=== PATIENT | female | born 1985 | race Caucasian/White ===

== ENCOUNTER 2020-11-27 08:49 | Emergency (ER) | payer OTHER, MEDICAID, SELFPAY ==
[2020-11-27] VITALS (8 sets, daily range): BP systolic 130–152; BP diastolic 62–68; PULSE 72–85; RESP 14–18; TEMP 36.8; O2SAT 97–99; BMI 33.0
--- NOTE | 2020-11-27 09:15 | DI.RAD.S_ITS ---
PROCEDURE: XR CHEST 1V INDICATIONS: chest pain TECHNIQUE: One view of the chest was acquired. COMPARISON: [facility], CR, XR CHEST 2 VIEWS, 11/15/2018, 7:34. [facility], CR, XR CHEST 1 VIEW, 06/25/2020, 8:04. FINDINGS: Surgical changes and devices: None. Lungs and pleura: Lungs are clear. No pleural effusions or pneumothorax. Mediastinum: Mediastinal contours appear normal. Heart size is normal. Bones and chest wall: No suspicious bony lesions. Overlying soft tissues appear unremarkable. IMPRESSION: Portable chest within normal limits. Dictated by: Vern Pinzon M.D. on 11/27/2020 at 8:30 Approved by: Vern Pinzon M.D. on 11/27/2020 at 8:32
[2020-11-27 09:21] LABS: Add Manual Diff / Slide Review NO; Basophils Absolute Auto 0 /uL (0-100); Basophils Percent Auto 0.6 % (0-2); Eosinophils Absolute Auto 100 /uL (0-450); Eosinophils Percent Auto 0.8 % (2-4); Hematocrit 41.2 % (36-46); Hemoglobin 14.1 g/dL (12.0-16.0); Lymphocytes Absolute Auto 2400 /uL (1100-4500); Lymphocytes Percent Auto 32.4 % (25-40); Mean Corpuscular HGB Conc 34.2 % (30-36); Mean Corpuscular Hemoglobin 29.8 PG (26-34); Mean Corpuscular Volume 87.2 fL (80-100); Monocytes Absolute Auto 600 /uL (0-900); Monocytes Percent Auto 7.5 % (3-14); Neutrophils Absolute Auto 4300 /uL (1500-7000); Neutrophils Percent Auto 58.7 % (50-75); Platelet Count 241 X10^3/uL (150-400); Red Blood Cell Count 4.73 X10^6/uL (4.0-5.2); Red Cell Distribution Width 12.9 % (11.6-14.8); White Blood Cell Count 7.4 X10^3/uL (4.5-11.0)
[2020-11-27 09:29] LABS: Alanine Aminotransferase 19 IU/L (<35); Albumin 4.6 g/dL (3.5-5.0); Albumin Globulin Ratio 1.5 (1.0-2.8); Alkaline Phosphatase 60 U/L (38-126); Aspartate Aminotransferase 28 IU/L (14-36); BUN Creatinine Ratio 21.2 (6-22); Blood Urea Nitrogen 11 mg/dL (7-17); Calcium 9.3 mg/dL (8.4-10.2); Carbon Dioxide 26 mmol/L (22-32); Chloride 102 mmol/L (98-107); Creatine Kinase 94 U/L (30-135); Estimated Glomerular Filt Rate > 60.0 mL/min (>60); Glucose 90 mg/dL (70-100); Lipase 66 U/L (23-300); Magnesium 1.8 mg/dL (1.6-2.3); Potassium 4.3 mmol/L (3.4-5.1); Sodium 136 mmol/L (137-145); Total Protein 7.6 g/dL (6.3-8.2)
[2020-11-27 09:30] LABS: HEMOLYSIS 52 (0-50)
[2020-11-27 09:35] LABS: Prothrombin Time 11.4 SECONDS (10.1-12.7)
[2020-11-27 09:38] LABS: PTT Partial Thromboplastin Tim 31 SECONDS (26.4-36.2)
[2020-11-27 09:40] LABS: Troponin I < 0.012 ng/mL (0.01-0.034)
--- NOTE | 2020-11-27 10:10 | ED_ITS ---
HPI - Chest Pain General Chief Complaint: Chest Pain Stated Complaint: sharp pain in head,dizzy,chest pain,fainty Time Seen by Provider: 11/27/20 09:19 Source: patient Mode of arrival: Ambulatory Limitations: no limitations History of Present Illness HPI narrative: 34-year-old woman comes in complaining of at stabbing pain behind her right eye, eyelid twitching and a zinging pain going all the way from her head down her right arm. She states that this is the worst episode that she has had but she notes over the last 6 weeks that she has been having similar findings. She reports no vision changes and no tinnitus. She does not note any motor issues or weakness. She notes multiple episodes of zoning neuropathic type pain in both upper and lower extremities. She does have a history of migraine and has been on Topamax in the past but it was not effective for her. She has used Botox as well as injectable Toradol and tripped hands and none have been very effective. She states when she does get headaches they typically are one-sided but today she is having bilateral stabbing temporal pain. She complains of multiple arthralgias and in the past to the hospital if fibromyalgia as a diagnosis was discussed. 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 She does note that her biologic mother does have multiple sclerosis but has no additional details are as they do not talk to each other. The event today was a combination of all of the complaints symptoms that have been increasing over the last 6 weeks and she is significantly concerned. Related Data Previous Rx's Medication Instructions Recorded amitriptyline 25 mg PO BEDTIME #30 tab 11/27/20 Allergies Allergy/AdvReac Type Severity Reaction Status Date / Time codeine [From Robitussin A-C] AdvReac Dizziness Verified 11/27/20 09:25 [email or web address] AdvReac Dizziness Verified 11/27/20 09:25 [From Robitussin A-C] Review of Systems Review of Systems Narrative: Pertinent positive and negative findings as per HPI Remainder of review of systems is otherwise unremarkable for Constitutional: Fevers, chills, weakness ENT: No sore throat, neck pain, ear pain CV: Chest pain, palpitations, dyspnea on exertion Respiratory: Cough, wheeze, dyspnea GI: Nausea, vomiting, diarrhea, change in bowel habits, black or bloody stools : Dysuria, hematuria, flank pain MS: Muscle weakness, numbness, joint swelling or warmth Skin: Rashes, nonhealing lesions Patient History Medical History Migraine Social History Smoking Status: Never smoker Smoking Status: Never smoker alcohol intake frequency: other Substance Use Type: does not use Exam Narrative Exam Narrative: General: Healthy appearing, in no acute distress. Able to give a complete and coherent history. Well-nourished well-developed HEENT: Moist mucous membranes, normal sclera with reactive pupils, no blepharospasm is observed at this time Neck: No JVD, supple Respiratory: Lungs are clear to auscultation, no wheezing no rales no rhonchi. Full and symmetrical air movement Cardiac: Regular rate and rhythm no murmurs no bruits Abdomen: Soft, nontender, good bowel tones, no flank pain Skin: Warm and dry, no rashes Neurologic: Grossly neurologically intact with no obvious asymmetries or abnormalities, reflexes are 3+ and symmetrical in upper and lower extremities Extremities: No trauma, well perfused Psych: Cooperative, appropriate insight and affect Initial Vital Signs Initial Vital Signs: Vital Signs Temperature 98.3 F 11/27/20 08:50 Pulse Rate 85 11/27/20 08:50 Respiratory Rate 16 11/27/20 08:50 Blood Pressure 152/67 H 11/27/20 08:50 Pulse Oximetry 99 11/27/20 08:50 Course Orders Ordered: ED Orders 11/27/20 09:10 Complete Blood Count AUTO DIFF Stat Comprehensive Metabolic Panel Stat Lipase Stat Magnesium Stat Partial Thromboplastin Time Stat Prothrombin Time INR Stat Troponin & CK Cardiac Panel Stat 11/27/20 09:15 XR chest 1V Stat EKG-12 Lead Stat 11/27/20 10:15 MR head/brain wo/w con Stat Discontinued Medications Lorazepam (Lorazepam 2 Mg/Ml Inj) 1 mg IV NOW ONE Stop: 11/27/20 10:18 Last Admin: 11/27/20 10:24 Dose: 1 mg Documented by: GAYE Vital Signs Vital signs: Vital Signs - 8 hr 11/27/20 08:50 11/27/20 09:11 11/27/20 09:12 Temperature 98.3 F Pulse Rate 85 81 78 Respiratory Rate 16 Blood Pressure 152/67 H 136/62 Pulse Oximetry 99 98 97 11/27/20 09:30 11/27/20 09:31 11/27/20 10:09 Temperature Pulse Rate 79 78 83 Respiratory Rate 18 16 Blood Pressure 139/68 Pulse Oximetry 98 99 99 11/27/20 11:36 Temperature Pulse Rate 72 Respiratory Rate 14 Blood Pressure 130/62 Pulse Oximetry 99 MDM - Chest Pain Medical Records Data Attestation: I reviewed the patient's medical records. Lab Data Attestation: I reviewed the patient's lab results. Result diagrams: 11/27/20 09:10 11/27/20 09:10 Labs: Lab Results 11/27/20 11/27/20 11/27/20 Range/Units 09:10 09:10 09:10 WBC 7.4 (4.5-11.0) X10^3/uL RBC 4.73 (4.0-5.2) X10^6/uL Hgb 14.1 (12.0-16.0) g/dL Hct 41.2 (36-46) % MCV 87.2 (80-100) fL MCH 29.8 (26-34) PG MCHC 34.2 (30-36) % RDW 12.9 (11.6-14.8) % Plt Count 241 (150-400) X10^3/uL Neut % (Auto) 58.7 (50-75) % Lymph % (Auto) 32.4 (25-40) % [place] % (Auto) 7.5 (3-14) % Eos % (Auto) 0.8 L (2-4) % Baso % (Auto) 0.6 (0-2) % Neut # (Auto) 4300 (3757-1867) /uL Lymph # (Auto) 2400 (3907-6286) /uL [place] # (Auto) 600 (0-900) /uL Eos # (Auto) 100 (0-450) /uL Baso # (Auto) 0 (0-100) /uL PT 11.4 (10.1-12.7) SECONDS INR 1.0 (0.9-1.3) APTT 31 (26.4-36.2) SECONDS Sodium 136 L (137-145) mmol/L Potassium 4.3 (3.4-5.1) mmol/L Chloride 102 (98-107) mmol/L Carbon Dioxide 26 (22-32) mmol/L BUN 11 (7-17) mg/dL Creatinine 0.52 (0.52-1.04) mg/dL Estimated GFR > 60.0 (>60) mL/min BUN/Creatinine Ratio 21.2 (6-22) Glucose 90 (70-100) mg/dL Calcium 9.3 (8.4-10.2) mg/dL Magnesium 1.8 (1.6-2.3) mg/dL Total Bilirubin 1.0 (0.2-1.3) mg/dL AST 28 (14-36) IU/L ALT 19 (<35) IU/L Alkaline Phosphatase 60 (38-126) U/L Total Creatine Kinase 94 (30-135) U/L CK-MB (CK-2) TNP CK-MB (CK-2) Rel Index TNP Troponin I < 0.012 (0.01-0.034) ng/mL Total Protein 7.6 (6.3-8.2) g/dL Albumin 4.6 (3.5-5.0) g/dL Globulin 3.0 (1.7-4.1) g/dL Albumin/Globulin Ratio 1.5 (1.0-2.8) Lipase 66 (23-300) U/L Point of Care Testing Test Results Negative Urine Dip Bedside Urine Glucose Negative Bedside Urine Bilirubin - Negative Bedside Urine Ketone - Negative Urine Specific [place] 1.015 Bedside Urine Occult Blood - Negative Bedside Urine pH 6.0 Bedside Urine Protein - Negative Bedside Urine Urobilinogen - Negative Bedside Urine Nitrite - Negative Bedside Urine Leukocytes - Negative Esterase Imaging Data MR brain with and without: Radiologist's Impression: FINDINGS: Image quality: Excellent. CSF Spaces: Basal cisterns are patent. No extra-axial fluid collections. Ventricles are normal in size and shape. Brain: No brain parenchymal signal abnormality. The major intracranial vascular flow-related signal voids are maintained. Midline structures are normal in configuration. Orbital structures unremarkable. Skull and face: Calvarial marrow is normal in signal. Orbits appear normal. Sinuses: Sinuses and mastoids appear clear. IMPRESSION: Normal study. Dictated by: Angel Galindo M.D. on 11/27/2020 at 11:05 ECG Data Attestation: I personally reviewed and interpreted this ECG as follows: Interpretation: Sinus rhythm at a rate of 77 Normal intervals, normal axis No acute ischemic changes MDM Narrative Medical decision making narrative: 34-year-old woman with multiple complaints progressively worsening. Multiple neuropathic pain intermittent headaches intermittent blepharospasm. Possibility of multiple sclerosis given her mother's diagnosis is entertained. She has not had previous imaging. Her miller est concern is that she is having a stroke which, given her clinical exam presentation is far less likely. Labs are reassuring. Will see if brain MRI imaging can be facilitated today. MRI comes back very reassuring. Findings are shared with patient. In terms of her recurrent ?mini? neuropathic episodes and the blepharitis with eye pain I am wondering if this all may be migraine variant. I am going to suggest that she try adding magnesium as this can be helpful with both muscle spasm and reducing severity in incidence of migraine. I am also going to suggest that she try 25 mg of amitriptyline at night as a migraine prophylaxis. Went over alternatives benefits risks of amitriptyline with her. She is more than willing to try this and keep track of symptoms and follow-up with her [facility] physician in about month. She is safe for home discharge Discharge Plan Departure Patient Disposition: Home Clinical Impression: Migraine Qualifiers: Migraine type: ophthalmoplegic Intractability: not intractable Qualified Code(s): G43.B0 - Ophthalmoplegic migraine, not intractable Instructions: DI for Migraine Activity Restrictions/Additional Instructions: Thank you for coming in today I do not have a complete explanation for the is singing neuropathic pain that your having all-over your body, the blepharospasm or the pain behind her eye. I do know this does not look like MS based on your normal MRI. You do not have a tumor or mass that is causing any abnormalities within your brain. Your blood work was entirely reassuring. Because the pains are fleeting but recurrent I am going to suggest that we step back and take a larger overall approach to seeing if we can make a difference in your symptoms. Please add a daily magnesium supplement to your current medications. Magnesium can help with muscle spasm and also decrease intensity and severity of migraine. I am also going to suggest that you add 25 mg of amitriptyline at night. This may reduce the severity intensity of the symptoms that you are noticing. It will take at least a month of trying this to see if it truly will influence your symptoms. Please take it 2-3 hours before you plan to fall asleep. It frequ ently will give you a dry mouth and definitely helps with sleep. If you take it right bedtime and often leaves you groggy for a few hours in the morning. You need to schedule an appointment with your primary care physician in about a month to review all of your symptoms and see if the amitriptyline has been a good addition for you. I wish you the best Prescriptions: New amitriptyline 25 mg tablet 25 mg PO BEDTIME Qty: 30 RF: 1
--- NOTE | 2020-11-27 10:15 | DI.MRI.S_ITS ---
PROCEDURE: MR HEAD/BRAIN WO/W CON INDICATIONS: Multiple neuropathic pain symptoms, R eye pain/DONOHUE today TECHNIQUE: Noncontrast axial T1 spin echo, axial T2 fast spin echo, sagittal and axial FLAIR, coronal T2 fast spin echo, axial gradient echo, axial diffusion and ADC through the brain. After the administration of contrast, axial and coronal 3D VIBE or T1 spin echo with fat saturation through the brain. COMPARISON: None. FINDINGS: Image quality: Excellent. CSF Spaces: Basal cisterns are patent. No extra-axial fluid collections. Ventricles are normal in size and shape. Brain: No brain parenchymal signal abnormality. The major intracranial vascular flow-related signal voids are maintained. Midline structures are normal in configuration. Orbital structures unremarkable. Skull and face: Calvarial marrow is normal in signal. Orbits appear normal. Sinuses: Sinuses and mastoids appear clear. IMPRESSION: Normal study. Dictated by: Angel Galindo M.D. on 11/27/2020 at 11:05 Approved by: Angel Galindo M.D. on 11/27/2020 at 11:10
[2020-11-27] MEDS: LORazepam 2 MG/ML INJ 1 MG IV (10:24)
== END 2020-11-27 13:57 | disposition home or self-care (01) ==
PROVIDERS: Emergency Provider Emergency Medicine
DX: G43.B0 Ophthalmoplegic migraine, not intractable (principal); G58.8 Other specified mononeuropathies
CPT/HCPCS: 36415; 70553; 71045; 80053; 81003; 81025; 82550; 83690; 83735; 84484; 85025; 85610; 85730; 93005; 93010; 96374; 99284; A9579; J2060

== ENCOUNTER 2021-03-13 14:49 | Emergency (ER) | payer OTHER, MEDICAID, SELFPAY ==
[2021-03-13 14:50] VITALS: BP 126/69; PULSE 90; RESP 18; TEMP 37.4; O2SAT 98; BMI 28.7
[2021-03-13 15:23] VITALS: PULSE 87; RESP 10; O2SAT 98
[2021-03-13 15:30] VITALS: BP 110/56; PULSE 77; RESP 18; O2SAT 97
[2021-03-13] MEDS: SODIUM CHLORIDE 0.9% 1,000 ML 1000 ML IV (15:57)
[2021-03-13 16:00] VITALS: BP 123/59; PULSE 74; RESP 8; O2SAT 100
[2021-03-13 16:15] LABS: BUN Creatinine Ratio 28.9 (6-22); Blood Urea Nitrogen 13 mg/dL (7-17); Calcium 9.1 mg/dL (8.4-10.2); Carbon Dioxide 26 mmol/L (22-32); Chloride 106 mmol/L (98-107); Creatine Kinase 84 U/L (30-135); Estimated Glomerular Filt Rate > 60.0 mL/min (>60); Glucose 99 mg/dL (70-100); HEMOLYSIS 46 (0-50); Magnesium 1.8 mg/dL (1.6-2.3); Potassium 3.8 mmol/L (3.4-5.1); Sodium 137 mmol/L (137-145)
[2021-03-13 16:18] LABS: Add Manual Diff / Slide Review NO; Basophils Absolute Auto 0 /uL (0-100); Basophils Percent Auto 0.3 % (0-2); Eosinophils Absolute Auto 100 /uL (0-450); Eosinophils Percent Auto 0.8 % (2-4); Hematocrit 37.5 % (36-46); Hemoglobin 12.8 g/dL (12.0-16.0); Lymphocytes Absolute Auto 2100 /uL (1100-4500); Lymphocytes Percent Auto 24.3 % (25-40); Mean Corpuscular HGB Conc 34.2 % (30-36); Mean Corpuscular Hemoglobin 29.5 PG (26-34); Mean Corpuscular Volume 86.4 fL (80-100); Monocytes Absolute Auto 600 /uL (0-900); Monocytes Percent Auto 6.5 % (3-14); Neutrophils Absolute Auto 6000 /uL (1500-7000); Neutrophils Percent Auto 68.1 % (50-75); Platelet Count 241 X10^3/uL (150-400); Red Blood Cell Count 4.34 X10^6/uL (4.0-5.2); Red Cell Distribution Width 12.7 % (11.6-14.8); White Blood Cell Count 8.8 X10^3/uL (4.5-11.0)
[2021-03-13 16:27] LABS: Troponin I < 0.012 ng/mL (0.01-0.034)
[2021-03-13 16:30] VITALS: PULSE 63; RESP 14; O2SAT 100
[2021-03-13 16:31] VITALS: BP 113/57; PULSE 67; RESP 14; O2SAT 100
--- NOTE | 2021-03-13 16:37 | ED.ARRPALP ---
HPI - Arrhythmia/Palpitations General Chief Complaint: Arrhythmia/Palpitations Stated Complaint: Heart Palpitations, Dizzy, Chest Pain, Sweating Time Seen by Provider: 03/13/21 16:37 Source: patient Mode of arrival: Ambulatory Limitations: no limitations History of Present Illness HPI narrative: Patient is a 35-year-old female who presents with his palpitations and chest discomfort. She says she was at work when she suddenly felt some chest burning and pressure in her chest and then suddenly felt her heart take off. She said she was having significant palpitations it seemed to last for a while she had a sit-down and then she came to the emergency department. She says she is now feeling much better she is in a sinus rhythm with heart rate in the 90s. She said that she has had this before and she wore a 24 hour monitor but did not catch anything. She overall is feeling much better. She has 1 cup of coffee daily. She does not drink alcohol. She is trying to stay hydrated she has a water bottle at bedside. She has not passed out. Related Data Previous Rx's Medication Instructions Recorded amitriptyline 25 mg tablet 25 mg PO BEDTIME #30 tab 11/27/20 Allergies Allergy/AdvReac Type Severity Reaction Status Date / Time codeine [From Robitussin A-C] AdvReac Dizziness Verified 03/13/21 14:58 [email or web address] AdvReac Dizziness Verified 03/13/21 14:58 [From Robitussin A-C] Review of Systems Review of Systems Narrative: GENERAL: Denies chills, fatigue, malaise, fever, sweats, travel HEENT: Denies sinus pain, ear pain, sore throat, difficulty swallowing, neck pain RESPIRATORY: Denies dyspnea, cough, wheezing, hemoptysis, sputum. CARDIOVASCULAR: See HPI GASTROINTESTINAL: Denies nausea, vomiting, abdominal pain, diarrhea, constipation, melena. : Denies dysuria, frequency, incontinence, hematuria, urinary retention, flank pain. MUSCULOSKELETAL: Denies weakness, joint pain, or bony pain SKIN: No rash, no erythema, no pruritus NEUROLOGIC: Denies weakness, dizziness, headache, numbness, change in speech, confusion PSYCHIATRIC: No concerning psychosocial issues. 12 point review of systems is negative except for those stated above and HPI Patient History Medical History Migraine Social History Smoking Status: Former smoker Smoking Status: Former smoker alcohol intake frequency: a few times a month Substance Use Type: does not use Exam Initial Vital Signs Initial Vital Signs: Vital Signs Temperature 99.3 F 03/13/21 14:50 Pulse Rate 90 03/13/21 14:50 Respiratory Rate 18 03/13/21 14:50 Blood Pressure 126/69 03/13/21 14:50 Pulse Oximetry 98 03/13/21 14:50 GENERAL: Alert pleasant 35-year-old female no acute distress HEENT: Head atraumatic,EOMI, pupils reactive, face symmetric, moist] mucous membranes CARDIOVASCULAR: Regular rate and rhythm without murmurs, rubs or gallops. RESPIRATORY: Breath sounds equal bilaterally, no wheezes rales or rhonchi. ABDOMEN: Soft, nontender. Normoactive bowel sounds all 4 quadrants. No guarding or rebound. EXTREMITIES: Normal range of motion, no clubbing or edema. Neurovascularly intact NEUROLOGICAL: Alert and oriented x4.Normal gait and speech. SKIN: Warm, dry, no laceration, no petechiae, no rashes or lesions. Course Orders Ordered: Discontinued Medications Sodium Chloride (Normal Saline 0.9%) 1,000 mls @ 1,000 mls/hr IV BOLUS ONE Stop: 03/13/21 16:50 Last Infusion: 03/13/21 16:41 Dose: 0 mls/hr Documented by: Infusion: 03/13/21 16:36 Dose: 0 mls/hr Documented by: Admin: 03/13/21 15:57 Dose: 1,000 mls/hr Documented by: ZAY Vital Signs Vital signs: Vital Signs - 8 hr 03/13/21 14:50 03/13/21 15:23 03/13/21 15:30 Temperature 99.3 F Pulse Rate 90 87 77 Respiratory Rate 18 10 L 18 Blood Pressure 126/69 110/56 L Pulse Oximetry 98 98 97 03/13/21 16:00 Temperature Pulse Rate 74 Respiratory Rate 8 L Blood Pressure 123/59 L Pulse Oximetry 100 MDM - Arrhythmia/Palpitations Lab Data Result diagrams: 03/13/21 15:05 03/13/21 15:05 Labs: Lab Results 03/13/21 03/13/21 03/13/21 Range/Units 15:05 15:05 15:05 WBC 8.8 (4.5-11.0) X10^3/uL RBC 4.34 (4.0-5.2) X10^6/uL Hgb 12.8 (12.0-16.0) g/dL Hct 37.5 (36-46) % MCV 86.4 (80-100) fL MCH 29.5 (26-34) PG MCHC 34.2 (30-36) % RDW 12.7 (11.6-14.8) % Plt Count 241 (150-400) X10^3/uL Neut % (Auto) 68.1 (50-75) % Lymph % (Auto) 24.3 L (25-40) % [place] % (Auto) 6.5 (3-14) % Eos % (Auto) 0.8 L (2-4) % Baso % (Auto) 0.3 (0-2) % Neut # (Auto) 6000 (9661-7336) /uL Lymph # (Auto) 2100 (8780-4566) /uL [place] # (Auto) 600 (0-900) /uL Eos # (Auto) 100 (0-450) /uL Baso # (Auto) 0 (0-100) /uL Sodium 137 (137-145) mmol/L Potassium 3.8 (3.4-5.1) mmol/L Chloride 106 (98-107) mmol/L Carbon Dioxide 26 (22-32) mmol/L BUN 13 (7-17) mg/dL Creatinine 0.45 L (0.52-1.04) mg/dL Estimated GFR > 60.0 (>60) mL/min BUN/Creatinine Ratio 28.9 H (6-22) Glucose 99 (70-100) mg/dL Calcium 9.1 (8.4-10.2) mg/dL Magnesium 1.8 (1.6-2.3) mg/dL Total Creatine Kinase 84 (30-135) U/L CK-MB (CK-2) TNP CK-MB (CK-2) Rel Index TNP Troponin I < 0.012 (0.01-0.034) ng/mL TSH 1.08 (0.47-4.68) uIU/mL Point of Care Testing Test Results Negative Urine Dip Bedside Urine Glucose Negative Bedside Urine Bilirubin - Negative Bedside Urine Ketone - Negative Urine Specific [place] 1.015 Bedside Urine Occult Blood - Negative Bedside Urine pH 6.0 Bedside Urine Protein - Negative Bedside Urine Urobilinogen - Negative Bedside Urine Nitrite - Negative Bedside Urine Leukocytes - Negative Esterase ECG Data Interpretation: Normal sinus rhythm rate 79 p.r. interval 170 QRS [address] changes or T-wave inversions, similar to previous MDM Narrative Medical decision making narrative: The patient sounds as though she had an arrhythmia of some sore possibly SVT however cannot be confirmed. Recommend that she call 911 to she can be put on a monitor soon as she feels it. His and she also may need Holter monitor for a longer period of time more than 24 hours. At this time she is in sinus rhythm she feels significantly better. Blood work is overall reassuring recommend outpatient follow-up Discharge Plan Departure Patient Disposition: Home Clinical Impression: Heart palpitations Instructions: DI for Palpitations Activity Restrictions/Additional Instructions: *You have been diagnosed with palpitations *What to do: You will need to try and catch the arrhythmia. Once you feel it happening call 911. *Continue to take medications as directed *Follow up with your primary care provider in 2-3 days *Return to ER if you should have increasing chest pain palpitation or any new, worsening or concerning symptoms Prescriptions: No Action amitriptyline 25 mg tablet 25 mg PO BEDTIME Qty: 30 RF: 1
[2021-03-13 16:46] LABS: Thyroid Stimulating Hormone 1.08 uIU/mL (0.47-4.68)
== END 2021-03-13 16:58 | disposition home or self-care (01) ==
PROVIDERS: Emergency Provider Emergency Medicine
DX: R00.2 Palpitations (principal); R07.9 Chest pain, unspecified
CPT/HCPCS: 36415; 80048; 81003; 81025; 82550; 83735; 84443; 84484; 85025; 93005; 96360; 99284